=== PATIENT | female | born 1985 | race African-American/Black ===

== ENCOUNTER 2016-07-10 11:42 | Inpatient (IN) | payer OTHER ==
[~2016-07-10] VITALS: Ht 165.1 cm; Wt 78.6 kg
--- NOTE | ~2016-07-10 | CON ---
[place], [place] REPORT OF CONSULTATION NAME: CORIE OLEARY UNIT #: [id number] ROOM: 428 DOCTOR: AYAN FLEMING ED.D (KELLI) BIRTHDATE: [birth year] DOS: 07/11/2016 HISTORY OF PRESENT ILLNESS: The patient is a 31-year-old female referred by the hospitalist for an evaluation after she threatened suicide. At the present time, she is in [facility] patient at [facility] on the fourth floor. She states she is single and has 4 children. She presently resides in [place], [place]. She follows with Dr. Light as her primary care physician. This patient's medical history is pertinent for alcohol dependence, amphetamine abuse, bipolar disorder, cocaine abuse, cannabis abuse and opiate abuse. Her drug of choice is heroin, and she also abuses Subutex, crack cocaine and drinks one fifth of alcohol per day. She also takes two to three 2 mg Xanax each day along with methamphetamines at times. She was awake, alert and oriented in all three spheres. She did not appear to be having any active hallucinations or delusional thoughts. She denies any suicidal ideation or plan. She does follow at [facility] in [place], [place] for her bipolar disorder, but has missed several sessions. She does have case management services through the [facility]. She admitted she has significant substance abuse problem and is willing to get treatment. She was, however, arrested last week and stated she thought she should come to rehabilitation DIAGNOSES: 1. Alcohol dependence. 2. Amphetamine abuse. 3. Bipolar 1 - mixed. 4. Cocaine abuse. 5. Cannabis abuse. 6. Opiate abuse. RECOMMENDATIONS: The patient should follow with the [facility] which is her choice of outpatient providers once she is discharged from the hospital. She also should follow at [facility] for her bipolar disorder. Thank you very much for this consult. AYAN FLEMING ED.D CM:CONSTR:REPORT OF CONSULTATION 1149 07/12/16 0150 interface
[~2016-07-10 11:42] MED LIST: ATARAX,VISTARIL50 MG PO; CARBIDOPA/LEVOD1 TA1 PO; METHOCARBAMOL750 M1 PO; NATURE'S BLEND F1 MG PO; THERA TABS1 TAB PO; VITAMIN B-11 TAB PO
[2016-07-10 11:48] VITALS: BP 153/98
[2016-07-10 12:16] LABS: BASO % 0.5 % (0.0-1.0); EOS # 0.3 10*3/uL (0.0-0.4); EOS % 5.6 % (1.0-4.0); HEMATOCRIT 36.3 % (37.0-47.0); HEMOGLOBIN 10.9 g/dl (12.0-16.0); LYMPH # 1.3 10*3/uL (1.3-4.4); LYMPH % 23.3 % (27.0-41.0); MEAN CELL VOLUME 84.4 fl (81.0-99.0); MEAN CORPUSCULAR HGB 25.3 pg (27.0-31.0); MEAN PLATELET VOLUME 10.3 fl (9.6-12.3); MONO # 0.5 10*3/uL (0.1-1.0); MONO % 8.9 % (3.0-9.0); NEUT # 3.5 10*3/uL (2.3-7.9); NEUT % 61.5 % (47.0-73.0); PLATELET COUNT AUTOMATED 238 10*3/uL (130-400); RED CELL DISTRI WIDTH 17.4 % (0-14.5); WHITE BLOOD COUNT 5.7 10*3/uL (4.8-10.8)
[2016-07-10 12:29] LABS: ALBUMIN 3.9 gm/dl (3.1-4.5); ALKALINE PHOSPHATASE 65 U/L (45-117); BILIRUBIN, TOTAL 0.4 mg/dl (0.2-1.0); BUN 8 mg/dl (7-24); CARBON DIOXIDE 24 mmol/L (21-32); CHLORIDE 107 mmol/L (98-107); EST GLOM FILT AFRICAN AMERICAN > 60 ml/min; GLUCOSE 85 mg/dL (65-99); MAGNESIUM 1.9 mg/dL (1.5-2.1); POTASSIUM 3.9 mmol/L (3.5-5.1); SGOT/AST 20 IU/L (3-35); SGPT/ALT 14 U/L (12-78); SODIUM 141 mmol/L (136-145); TOTAL PROTEIN 7.5 gm/dL (6.4-8.2)
[2016-07-10 12:30] LABS: BILIRUBIN NEGATIVE (NEGATIVE); BLOOD NEGATIVE (NEGATIVE); CLARITY SL CLOUDY (CLEAR); COLOR YELLOW (YELLOW); GLUCOSE NEGATIVE (NEGATIVE); KETONE NEGATIVE (NEGATIVE); LEUKO ESTERASE NEGATIVE (NEGATIVE); NITRITE NEGATIVE (NEGATIVE); PH 5.5 (5.0-9.0); PROTEIN NEGATIVE (NEGATIVE); UROBILINOGEN 0.2 E.U./dl (0.2-1.0)
[2016-07-10 12:36] LABS: URINE AMPHETAMINES > 1000 (1000ng/ml); URINE BARBITURATES < 200 (200ng/ml); URINE COCAINE > 300 (300ng/ml)
[2016-07-10 12:39] LABS: MUCOUS 1+; RBC 0-2 rbc/hpf (0-2); URINE REFLEX COMMENT NO (NO)
[2016-07-10 13:00] VITALS: BP 133/90
[2016-07-10 13:17] LABS: INTERNATIONAL NORM RATIO 0.9 (2.0-3.5); PROTHROMBIN TIME 9.5 SECONDS (9.0-12.4)
[2016-07-10 16:00] VITALS: BP 126/87
[2016-07-10 20:00] VITALS: BP 108/63
[2016-07-11] VITALS: BP 98/63
[2016-07-11 08:00] VITALS: BP 104/48
[2016-07-11 12:00] VITALS: BP 104/62
[2016-07-11 16:00] VITALS: BP 102/58
[2016-07-11 20:00] VITALS: BP 113/57
[2016-07-12] VITALS: BP 105/53
[2016-07-12 08:00] VITALS: BP 101/50
[2016-07-12 11:50] VITALS: BP 110/60
[2016-07-12 16:00] VITALS: BP 108/64
[2016-07-12 20:00] VITALS: BP 123/53
[2016-07-13] VITALS: BP 106/58
[2016-07-13 08:00] VITALS: BP 104/60
[2016-07-13] MEDS ORDERED: ATARAX,VISTARIL50 MG PO (12:11)
[2016-07-13] MEDS ORDERED: ZOFRAN 4 MG ED2 TAB PO (12:11)
[2016-07-13] MEDS ORDERED: ROPINIROLE HYD0.5 MG PO (12:11)
== END 2016-07-13 12:42 | disposition home or self-care (01) | DRG 897 ==
LOC: ED 11:42 → EDHOLD 12:05 → 4E 12:05
PROVIDERS: Emergency Medicine; Internal Medicine Hospice and Palliative Medicine
DX: F10.239 Alcohol dependence with withdrawal, unspecified (principal); F11.23 Opioid dependence with withdrawal; R45.851 Suicidal ideations; M79.1 Myalgia; F31.9 Bipolar disorder, unspecified; G25.81 Restless legs syndrome; R07.9 Chest pain, unspecified; D64.9 Anemia, unspecified; M54.5 Low back pain; F13.10 Sedative, hypnotic or anxiolytic abuse, uncomplicated; F15.10 Other stimulant abuse, uncomplicated; F14.10 Cocaine abuse, uncomplicated; F41.1 Generalized anxiety disorder; F17.200 Nicotine dependence, unspecified, uncomplicated; F12.10 Cannabis abuse, uncomplicated; Z98.51 Tubal ligation status; Z81.1 Family history of alcohol abuse and dependence; Z82.49 Family history of ischemic heart disease and other diseases of the circulatory system